=== PATIENT | male | born 1980 ===

== ENCOUNTER 2016-08-12 23:02 | Emergency (ER) | payer OTHER ==
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
== END 2016-08-13 01:28 | disposition home or self-care (01) ==
LOC: ED 23:02
DX: M54.6 Pain in thoracic spine (principal); V43.62XA Car passenger injured in collision with other type car in traffic accident, initial encounter; Y92.410 Unspecified street and highway as the place of occurrence of the external cause